=== PATIENT | female | born 1975 | race Caucasian/White ===

== ENCOUNTER 2020-06-02 09:17 | Outpatient (CLI) | payer OTHER, SELFPAY ==
[2020-06-02 22:21] LABS: SARS-CoV-2 PCR by NAA Not Detected (NotDetected)
== END 2020-06-02 09:18 | disposition home or self-care (01) ==
LOC: LABBT 09:17
PROVIDERS: ATTEND Specialist
DX: Z01.812 Encounter for preprocedural laboratory examination (principal); E66.01 Morbid (severe) obesity due to excess calories; Z20.822 Contact with and (suspected) exposure to COVID-19
CPT/HCPCS: 87635; U0003; U0005

== ENCOUNTER 2020-06-05 10:36 | Outpatient (CLI) | payer OTHER | END 2020-06-05 10:37 | disposition home or self-care (01) | LOC: RAD 10:36 | PROVIDERS: ATTEND Specialist | DX: E66.01 Morbid (severe) obesity due to excess calories (principal); K44.9 Diaphragmatic hernia without obstruction or gangrene | CPT/HCPCS: 74240 ==

== ENCOUNTER 2020-06-20 13:00 | Inpatient (IN) | payer OTHER ==
[2020-06-23 12:40] VITALS: BMI 39.7
[2020-06-25] MEDS ORDERED: Heparin 5,000 UNITS/ML VIAL ONE (06:19)
[2020-06-25] MEDS ORDERED: cefOXitin Sodium/Dextrose 2 GM/50 ML BAG ONE (06:19)
[2020-06-25] MEDS ORDERED: Ketorolac Tromethamine 30 MG/ML VIAL ONE ×2 (06:20→14:52)
[2020-06-25] MEDS ORDERED: Scopolamine 1.5 mg/72 hour Patch ONE (06:20)
[2020-06-25] MEDS ORDERED: Acetaminophen 500 MG TAB ONE ×2 (06:20)
[2020-06-25] MEDS ORDERED: Bupivacaine 0.25% HCL 30 ML VIAL ONE (06:34)
[2020-06-25] MEDS ORDERED: Lidocaine 1% w/Epinephrine 1:100K 20 ML VIAL ONE (06:34)
[2020-06-25] MEDS ORDERED: Famotidine/PF 20 mg/2ml Vial ONE (06:50)
[2020-06-25] MEDS ORDERED: Fentanyl 250 MCG/5 ML VIAL ONE (06:50)
[2020-06-25] MEDS ORDERED: Midazolam HCl 2 mg/2 ml Vial ONE (06:50)
[2020-06-25] MEDS ORDERED: Promethazine HCl 25 MG/ML VIAL SLOW IVP PRN ×2 (07:12→10:05)
[2020-06-25] MEDS ORDERED: Promethazine HCl 25 MG/ML VIAL IM PRN ×2 (07:12→10:05)
[2020-06-25] MEDS ORDERED: Ondansetron HCl/PF 4 MG/2 ML Vial IVP PRN ×2 (07:12→10:05)
[2020-06-25] MEDS ORDERED: Morphine Sulfate 2 MG/ML SYRINGE SLOW IVP PRN (07:12)
[2020-06-25] MEDS ORDERED: Ondansetron PF 4 MG/2 ML Vial ONE (07:15)
[2020-06-25] MEDS ORDERED: ePHEDrine Sulfate 50 MG/10 ML VIAL ONE (07:15)
[2020-06-25] MEDS ORDERED: PROPOFOL 200 MG/20 ML VIAL ONE (07:15)
[2020-06-25] MEDS ORDERED: diphenhydrAMINE 50 MG/ML VIAL ONE (07:15)
[2020-06-25] MEDS ORDERED: Dexamethasone 20 MG/5 ML VIAL ONE (07:15)
[2020-06-25] MEDS ORDERED: Lidocaine 1% PF 5 ML VIAL ONE (07:15)
[2020-06-25] MEDS ORDERED: Rocuronium Bromide 10 MG/ML (10ML VIAL) ONE (07:15)
[2020-06-25] MEDS ORDERED: Morphine 4 MG/ML VIAL SLOW IVP PRN (07:17)
[2020-06-25] MEDS ORDERED: Ondansetron PF 4 MG/2 ML Vial IVP PRN (07:17)
[2020-06-25] MEDS ORDERED: diphenhydrAMINE 50 MG/ML VIAL IVP PRN (07:17)
[2020-06-25] MEDS ORDERED: Morphine 2 MG/ML VIAL SLOW IVP PRN (07:17)
[2020-06-25] MEDS ORDERED: hydrALAZINE 20 MG/ML VIAL SLOW IVP PRN (07:17)
[2020-06-25] MEDS ORDERED: Ondansetron ORAL SOLN. 4 MG/5 ML UDCUP PO PRN ×2 (07:21)
[2020-06-25] MEDS ORDERED: Ondansetron ODT 8 MG TAB SL PRN (07:21)
[2020-06-25] MEDS ORDERED: SUGAMMADEX SODIUM 500 MG/5 ML VIAL ONE (09:33)
[2020-06-25] MEDS ORDERED: HYDROmorphone 2 MG/ML VIAL SLOW IVP PRN (10:05)
[2020-06-25] MEDS ORDERED: Meperidine HCl/PF 25 MG/ML VIAL SLOW IVP PRN ×2 (10:05)
[2020-06-25] MEDS ORDERED: Fentanyl 100 MCG/2 ML VIAL ONE ×3 (10:12→11:27)
[2020-06-25] MEDS ORDERED: HYDROmorphone 0.5 MG/0.5 ML SYRINGE ONE ×3 (11:49→14:22)
[2020-06-25] MEDS: Escitalopram Oxalate 20 mg Tablet PO SCH (16:21)
[2020-06-25] MEDS: D5 1/2 NS w/20 mEq KCL 1,000 ML IV SCH ×3 (16:21→23:59)
[2020-06-25] MEDS: Pantoprazole 40 MG VIAL IVP SCH (16:21)
[2020-06-25] MEDS: Lisinopril 20 MG TAB PO SCH (16:21)
[2020-06-25] MEDS: Fluticasone Propionate Nasal Spray 16 gm Bottle NASAL SCH (16:21)
[2020-06-25] MEDS: Amlodipine 10 MG TAB PO SCH (16:21)
[2020-06-25] MEDS: Ketorolac Tromethamine 30 MG/ML VIAL IVP SCH ×3 (16:22→23:58)
[2020-06-25] MEDS: Hydrocodone-Acetamin 15 ML UDCUP PO PRN (19:52)
[2020-06-25] MEDS ORDERED: Enoxaparin Sodium 40 MG/0.4 ML SYRINGE SC SCH (21:00)
[2020-06-26] MEDS: Hydrocodone-Acetamin 15 ML UDCUP PO PRN ×3 (04:10→15:23)
[2020-06-26] MEDS: Ketorolac Tromethamine 30 MG/ML VIAL IVP SCH ×2 (05:59→11:26)
[2020-06-26] MEDS: D5 1/2 NS w/20 mEq KCL 1,000 ML IV SCH (07:56)
[2020-06-26 08:12] LABS: #Lymphocytes 1.6 thou/uL (1.20-3.40); #Monocytes 1.2 thou/uL (0.11-0.59); #Neutrophils 10.7 thou/uL (1.40-6.50); %Basophils 0.2 % (0.0-1.0); %Eosinophils 0.1 % (0.0-10.0); %Lymphocytes 11.6 % (21.0-51.0); %Monocytes 8.7 % (0.0-10.0); %Neutrophils 79.4 % (42.0-75.0); Hemoglobin 10.5 g/dL (12.0-16.0); Mean Corpuscular HGB CONC 33.7 g/dL (32.0-36.0); Mean Corpuscular Hemoglobin 29.9 pg (27.0-31.0); Mean Corpuscular Volume 88.7 fL (78.0-98.0); Mean Platelet Volume 7.5 fL (7.4-10.4); Platelet Count 313 thou/uL (130-400); RBC Distribution Width 11.7 % (11.5-14.5); Red Blood Cell (RBC) Count 3.52 mill/uL (4.20-5.40); White Blood Cell (WBC) Count 13.5 thou/uL (4.8-10.8)
[2020-06-26 08:30] LABS: Anion Gap 11 mmol/L (10-20); BUN (Urea Nitrogen) 13 mg/dL (7.0-18.7); Calc. Creatinine Clearance 170 mL/min (70-130); Carbon Dioxide 25 mmol/L (22-29); Chloride 104 mmol/L (98-107); Glucose 100 mg/dL (70-105); Potassium 3.9 mmol/L (3.5-5.1); Sodium 136 mmol/L (136-145)
[2020-06-26] MEDS: Lisinopril 20 MG TAB PO SCH (08:43)
[2020-06-26] MEDS: Amlodipine 10 MG TAB PO SCH (08:43)
[2020-06-26] MEDS: Escitalopram Oxalate 20 mg Tablet PO SCH (08:43)
[2020-06-26] MEDS: Pantoprazole 40 MG VIAL IVP SCH (08:44)
[2020-06-26] MEDS: Fluticasone Propionate Nasal Spray 16 gm Bottle NASAL SCH (09:15)
[2020-06-26 15:39] VITALS: BP 136/84; TEMP 98.1
== END 2020-06-26 15:46 | disposition home or self-care (01) | DRG 621 ==
LOC: SURG A 06-25 06:09 → SURG B 06-25 16:04
PROVIDERS: ADMIT Specialist; ATTEND Specialist
PROC: 0D164ZA Bypass Stomach to Jejunum, Percutaneous Endoscopic Approach (ICD-10-PCS; principal; 2020-06-25)
DX: E66.01 Morbid (severe) obesity due to excess calories (principal); I10 Essential (primary) hypertension; M25.50 Pain in unspecified joint; E78.00 Pure hypercholesterolemia, unspecified; Z68.39 Body mass index [BMI] 39.0-39.9, adult; Z90.49 Acquired absence of other specified parts of digestive tract
CPT/HCPCS: 36415; 80048; 85025; 94760; C9113; J0694; J1100; J1170; J1200; J1644; J1650; J1885; J2250; J2270; J2405; J2704; J3010; J3480; S0020; S0028

== ENCOUNTER 2020-06-20 13:01 | Outpatient (CLI) | payer BC, SELFPAY ==
[2020-06-21 01:27] LABS: SARS-CoV-2 PCR by NAA Not Detected (NotDetected)
== END 2020-06-20 13:02 | disposition home or self-care (01) ==
LOC: LABBT 13:01
PROVIDERS: ATTEND Specialist
DX: Z01.818 Encounter for other preprocedural examination (principal); E66.01 Morbid (severe) obesity due to excess calories; Z68.36 Body mass index [BMI] 36.0-36.9, adult; M25.50 Pain in unspecified joint; Z20.822 Contact with and (suspected) exposure to COVID-19
CPT/HCPCS: 87635; 93005; 93010; U0003; U0005